=== PATIENT | male | born 1950 | race Caucasian/White ===

== ENCOUNTER 2024-03-22 16:39 | Emergency (ER) | payer MEDICAID, OTHER ==
[~2024-03-22] VITALS: Ht 175.3 cm; Wt 81.0 kg
[2024-03-22 16:57] VITALS: O2SAT 100
[2024-03-22 17:51] LABS: BASOPHILS % 0.4 % (0.0-2.0); EOSINOPHILS % 1.3 % (0.0-5.0); HEMATOCRIT. 44.9 % (42.0-52.0); HEMOGLOBIN. 15.4 g/dL (14.0-18.0); LYMPHOCYTES % 18.8 % (20.0-50.0); MEAN CORPUSCULAR HEMOGLOBIN 31.1 pg (28.0-32.0); MEAN CORPUSCULAR HGB CONC 34.3 g/dL (31.0-37.0); MEAN CORPUSCULAR VOLUME 90.8 fL (80.0-94.0); MEAN PLATELET VOLUME 8.4 fl (7.4-10.4); MONOCYTES % 10.8 % (2.0-8.0); NEUTROPHILS % 68.7 % (40.0-76.0); PLATELET 270 x1000/uL (130-400); RED BLOOD CELL COUNT 4.95 mill/uL (4.7-6.1); RED CELL DISTRIBUTION WIDTH 13.7 % (11.6-14.6); WHITE BLOOD COUNT 7.9 x1000/uL (4.5-11.0)
[2024-03-22 17:57] LABS: CHLORIDE 109 mEq/L (98-107); POTASSIUM 4.3 mEq/L (3.5-5.1); SODIUM 140 mEq/L (136-145)
[2024-03-22 17:58] LABS: CARBON DIOXIDE 25 mEq/L (21-32); PROTHROMBIN TIME 10.8 sec (9.6-11.0)
[2024-03-22 18:03] LABS: CREATININE 1.1 mg/dL (0.6-1.3); GLUCOSE 93 mg/dL (70-105); UREA NITROGEN BLOOD 19 mg/dL (9-23)
[2024-03-22 18:17] LABS: TROPONIN I HIGH SENSITIVITY < 4 ng/L (3.0-53)
[2024-03-22] MEDS ORDERED: AZIT500T8 MT (22:51)
[2024-03-22 23:00] VITALS: BP 158/78; PULSE 66; RESP 12; TEMP 98.2
== END 2024-03-22 23:06 | disposition home or self-care (01) ==
LOC: ER 16:39
DX: K52.9 Noninfective gastroenteritis and colitis, unspecified (principal)
CPT/HCPCS: 36415; 71045; 74177; 80048; 84484; 85025; 86850; 86900; 93005; 99285

== ENCOUNTER 2025-01-26 14:10 | Emergency (ER) | payer OTHER ==
[~2025-01-26] VITALS: Ht 172.7 cm; Wt 82.0 kg
[~2025-01-26 14:10] MED LIST: AZIT500T8 MT
[2025-01-26 14:13] VITALS: O2SAT 97
[2025-01-26 14:39] VITALS: BP 146/84; PULSE 84; RESP 14; TEMP 36.7; O2SAT 95
[2025-01-26] MEDS: METHOCARBAMOL 500MG TABLET PO ONE (16:46)
[2025-01-26] MEDS: IBUPROFEN 600MG TABLET PO ONE (16:46)
[2025-01-26] MEDS: LIDOCAINE 5% PATCH TOP SCH (16:46)
[2025-01-26] MEDS ORDERED: METH-653 MT (18:02)
[2025-01-26] MEDS ORDERED: LIDO700A30 TP (18:02)
[2025-01-26] MEDS ORDERED: IBUP-2029 MT (18:02)
== END 2025-01-26 18:16 | disposition home or self-care (01) ==
LOC: ER 14:10
DX: G89.29 Other chronic pain (principal); M54.9 Dorsalgia, unspecified; M48.061 Spinal stenosis, lumbar region without neurogenic claudication; M54.40 Lumbago with sciatica, unspecified side; E78.00 Pure hypercholesterolemia, unspecified; I10 Essential (primary) hypertension; F10.90 Alcohol use, unspecified, uncomplicated; Y90.9 Presence of alcohol in blood, level not specified
CPT/HCPCS: 72131; 99284